=== PATIENT | female | born 1980 | race Two or more races ===

== ENCOUNTER 2017-03-08 11:09 | Emergency (ER) | payer MEDICAID, OTHER ==
[~2017-03-08] VITALS: Ht 162.6 cm; Wt 56.5 kg
[2017-03-08 12:03] LABS: Basophils # (auto) 0 uL; Basophils % (auto) 0.7 % (0.0-2.0); Eosinophils # (auto) 0.1 uL; Eosinophils % (auto) 2.4 % (0.0-7.0); Hematocrit 37.1 % (36.0-46.0); Hemoglobin 12.4 g/dL (12.2-16.2); Lymphocytes # (auto) 1.5 uL; Lymphocytes % (auto) 29.9 % (10.0-50.0); Mean Corpuscular Hemoglobin 29.8 pg (28.0-32.0); Mean Corpuscular Hgb Conc. 33.5 g/dL (32.0-36.0); Mean Corpuscular Volume 89.1 fL (80.0-100.0); Mean Platelet Volume 8.4 fL (7.4-10.4); Monocytes # (auto) 0.4 uL; Monocytes % (auto) 7.7 % (0.0-12.0); Neutrophils % (auto) 59.3 % (37.0-80.0); Platelet Count (auto) 290 10^3/uL (140-450); White Blood Cell 5.1 10^3/uL (4.4-10.8)
[2017-03-08 13:23] LABS: Albumin 4.2 g/dL (3.4-5.0); Anion Gap 6 (5-15); Aspartate Aminotransferase 12 U/L (15-37); BUN/Creatinine Ratio 16.4; Blood Urea Nitrogen 12 mg/dL (7-18); Calcium 8.9 mg/dL (8.5-10.1); Carbon Dioxide 26 mmol/L (21-32); Chloride 108 mmol/L (98-107); GFR African American 117 mL/min; GFR Non-African American 96 mL/min; Glucose 95 mg/dL (74-106); Potassium 4.6 mmol/L (3.5-5.1); Sodium 140 mmol/L (136-145)
[2017-03-08 13:28] LABS: Alkaline Phosphatase 53 U/L (45-117); Bilirubin, Total 0.9 mg/dL (0.2-1.0); Total Protein 7.2 g/dL (6.4-8.2)
[2017-03-08 16:29] VITALS: BP 115/78
== END 2017-03-08 16:31 | disposition home or self-care (01) ==
LOC: ER 11:09
DX: R07.89 Other chest pain (principal); F41.9 Anxiety disorder, unspecified
CPT/HCPCS: 36415; 80053; 84484; 85025; 85379; 93005

== ENCOUNTER 2019-10-03 10:47 | Emergency (ER) | payer MEDICAID, OTHER ==
[~2019-10-03] VITALS: Ht 162.6 cm; Wt 70.3 kg
[~2019-10-03 10:47] MED LIST: PREN-96 PO
[2019-10-03 13:45] VITALS: BP 106/66
== END 2019-10-03 13:49 | disposition home or self-care (01) ==
LOC: EDSTATUS 10:47 → ER 10:47
DX: O99.513 Diseases of the respiratory system complicating pregnancy, third trimester (principal); R06.02 Shortness of breath; R20.2 Paresthesia of skin; R00.0 Tachycardia, unspecified; Z3A.35 35 weeks gestation of pregnancy
CPT/HCPCS: 59025; 81002

== ENCOUNTER 2019-11-02 10:50 | Observation (INO) | payer MEDICAID | END 2019-11-02 12:30 | disposition home or self-care (01) | DRG 566 | LOC: LDRP 10:50 | PROVIDERS: ADMIT Obstetrics & Gynecology; ATTEND Obstetrics & Gynecology | DX: O48.0 Post-term pregnancy (principal); O09.523 Supervision of elderly multigravida, third trimester; Z3A.40 40 weeks gestation of pregnancy | CPT/HCPCS: 76818; G0378; 59025; 81002 ==

== ENCOUNTER 2019-11-04 18:48 | Observation (INO) | payer MEDICAID | END 2019-11-04 20:55 | disposition home or self-care (01) | DRG 566 | LOC: LDRP 18:48 | PROVIDERS: ADMIT Specialist; ATTEND Specialist | DX: O48.0 Post-term pregnancy (principal); O26.893 Other specified pregnancy related conditions, third trimester; O09.523 Supervision of elderly multigravida, third trimester; R10.30 Lower abdominal pain, unspecified; Z3A.40 40 weeks gestation of pregnancy | CPT/HCPCS: 59025; 76818; 81002; G0378 ==

== ENCOUNTER 2019-11-06 08:59 | Observation (INO) | payer MEDICAID | END 2019-11-06 10:25 | disposition home or self-care (01) | DRG 566 | LOC: LDRP 08:59 | PROVIDERS: ADMIT Specialist; ATTEND Specialist | DX: O62.9 Abnormality of forces of labor, unspecified (principal); O09.523 Supervision of elderly multigravida, third trimester; O48.0 Post-term pregnancy; Z3A.40 40 weeks gestation of pregnancy | CPT/HCPCS: 59025; 76818; 81002; G0378 ==

== ENCOUNTER 2019-11-09 12:20 | Observation (INO) | payer MEDICAID | END 2019-11-09 12:55 | disposition home or self-care (01) | DRG 566 | LOC: LDRP 12:20 | PROVIDERS: ADMIT Specialist; ATTEND Specialist | DX: O48.0 Post-term pregnancy (principal); O62.9 Abnormality of forces of labor, unspecified; Z3A.41 41 weeks gestation of pregnancy | CPT/HCPCS: 76818; G0378; 59025; 81002 ==